=== PATIENT | male | born 1970 | race Caucasian/White ===

== ENCOUNTER → 2022-10-12 08:52 | Outpatient (BNVA) | payer MEDICARE, SELFPAY | PROVIDERS: Family Provider Family Medicine; PCP Family Medicine; Visit Provider Family Medicine | DX: Z76.89 Persons encountering health services in other specified circumstances (principal); R35.1 Nocturia; I10 Essential (primary) hypertension; N52.9 Male erectile dysfunction, unspecified; E78.2 Mixed hyperlipidemia; E11.9 Type 2 diabetes mellitus without complications | CPT/HCPCS: 80053; 80061; 82043; 83036; 84153; 84403; 85025 ==

== ENCOUNTER → 2023-07-03 15:57 | Outpatient (BNVA) | payer MEDICARE, OTHER, SELFPAY | PROVIDERS: Family Provider Family Medicine; PCP Family Medicine; Visit Provider Family Medicine | DX: E11.9 Type 2 diabetes mellitus without complications (principal); Z79.4 Long term (current) use of insulin; Z12.5 Encounter for screening for malignant neoplasm of prostate; M54.16 Radiculopathy, lumbar region; G89.29 Other chronic pain | CPT/HCPCS: 80053; 80061; 83036; 83721; 85025; G0103 ==

== ENCOUNTER → 2023-08-20 13:53 | Outpatient (BNVA) | payer MEDICARE, OTHER, SELFPAY | PROVIDERS: Family Provider Family Medicine; PCP Family Medicine; Visit Provider Nurse Practitioner Family | DX: S62.306A Unspecified fracture of fifth metacarpal bone, right hand, initial encounter for closed fracture (principal); X58.XXXA Exposure to other specified factors, initial encounter | CPT/HCPCS: 73130 ==

== ENCOUNTER 2025-06-16 08:36 | Emergency (ER) | payer MEDICARE, SELFPAY ==
[2025-06-16 09:07] VITALS: BP 138/80; PULSE 105; RESP 18; TEMP 36.7; O2SAT 100
--- OUTSIDE RECORDS SUMMARY | 2025-06-16 09:24 | XMS_ITS | Encounter Summary ---
Author Organization [facility] Address [address] [place] [address] Care Team Providers Care Justice Court Deputy Clerk Name Role Phone Lydia Brito MD Primary Care Provider Encounter Details Date Type Department Care Team (Latest Contact Info) Description 04/11/2002 Outpatient Historical [facility] Boni Manzo MD [address] [place] [phone] LOWER LEG INJURY NOS (Primary Dx); JOINT PAIN-ANKLE; DIABETES UNCOMPL ADULT-TYPE II (CMS/FORMERLY [facility]) Social History Tobacco Use Types Packs/Day Years Used Date Smoking Tobacco: Never Assessed Sex and Gender Information Value Date Recorded Sex Assigned at Not on file 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 Gender Identity Not on file Sexual Orientation Not on file documented as of this encounter Plan of Treatment Not on file documented as of this encounter Visit Diagnoses Diagnosis Injury, other and unspecified, knee, leg, ankle, and foot- Primary Pain in joint, ankle and foot Type II or unspecified type diabetes mellitus without mention of complication, not stated as uncontrolled documented in this encounter Care Teams Justice Court Deputy Clerk Relationship Specialty Start Date End Date Lydia Brito MD [address] [phone] PCP - General Family Practice 12/30/14 documented as of this encounter
--- OUTSIDE RECORDS SUMMARY | 2025-06-16 09:24 | XMS_ITS | Encounter Summary ---
Author Organization [facility] Address [address] [place] [address] Care Team Providers Care Reptile Farmer Name Role Phone Lydia Brito MD Primary Care Provider Encounter Details Date Type Department Care Team (Latest Contact Info) Description 07/27/1999 Outpatient Historical [facility] Carmine Gordon MD [address] [phone] Abdominal or pelvic swelling, mass, or lump, right upper quadrant (Primary Dx) Social History Tobacco Use Types Packs/Day Years Used Date Smoking Tobacco: Never Assessed Sex and Gender Information Value Date Recorded Sex Assigned at Not on file 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
--- OUTSIDE RECORDS SUMMARY | 2025-06-16 09:24 | XMS_ITS | Encounter Summary ---
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
--- OUTSIDE RECORDS SUMMARY | 2025-06-16 09:24 | XMS_ITS | Encounter Summary ---
Author Organization 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
--- OUTSIDE RECORDS SUMMARY | 2025-06-16 09:24 | XMS_ITS | Encounter Summary ---
Author Organization [facility] Address [address] [place] [address] Care Team Providers Care Business Integration Manager Name Role Phone Lydia Brito MD Primary Care Provider Encounter Details Date Type Department Care Team (Latest Contact Info) Description 02/22/1999 Outpatient Historical HIS [facility] Boni Manzo MD [address] [place] [address] Carpal tunnel syndrome (Primary Dx) Social History Tobacco Use Types Packs/Day Years Used Date Smoking Tobacco: Never Assessed Sex and Gender Information Value Date Recorded Sex Assigned at Not on file 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
--- OUTSIDE RECORDS SUMMARY | 2025-06-16 09:24 | XMS_ITS | Patient Health Record ---
Author Organization [facility] Address [address] [place] [address] Care Team Providers Care Miller Head Wet Process Name Role Phone John Dalton Unavailable [phone] Reason For Referral No Information Medications Medication SIG (Take, Route, Frequency, Duration) Notes Start Date End Date Status Metoprolol Tartrate 50 MG Tablet Take 1 tablet(s) by mouth bid Oral; Duration: 30 Metoprolol Tartrate 50mg Tablet Take 1 tablet(s) by mouth bid #60 (Sixty) tablet(s) 01/05/2014 Active Ramipril 5 MG Capsule Take 1 capsule(s) by mouth daily Oral; Duration: 30 Ramipril 5mg Capsules Take 1 capsule(s) by mouth daily #30 (Thirty) capsule(s) 02/02/2014 Active Pravastatin Sodium 40 MG Tablet Take 1 tablet(s) by mouth at bedtime Oral; Duration: 30 Pravastatin (Pravastatin) 40mg Tablet Take 1 tablet(s) by mouth at bedtime #30 (Thirty) tablet(s) 11/19/2013 Active Gabapentin 300 MG Capsule 1 cap(s) po at supper Oral; Duration: 30 Gabapentin (Gabapentin) 300mg Capsules 1 cap(s) po at supper #60 (Sixty) capsule(s) 11/19/2013 Active Aspirin 325 MG Tablet Delayed Release Take 1 tablet(s) by mouth qam Oral; Duration: 30 Aspirin (ASA) 325mg Tablets, Enteric Coated Take 1 tablet(s) by mouth qam 01/05/2014 Active Social History Social History Additional Details Category Social Info Options Details zzMigrated Social History Migrated Social History Advance Directive: Current and Verified Signed on 11/05/2013 Organ Donation: Patient Consents to Organ Donation 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 Highest Level of Education College level or above Problems Problem Type SNOMED Code ICD Code Onset Dates Problem Status W/U Status Risk Notes Problem Reduced libido (5866522) Decreased libido (799.81) 11/19/19 14 Problem resolved confirmed [id number]- Problem Low back pain (246203547) Low back pain (724.2) 09/28/20 14 Problem resolved confirmed [id number]- Problem Peripheral neuropathy (708897256) Peripheral neuropathy (356.9) 11/05/19 14 Problem resolved confirmed [id number]- Problem Open wound of foot (599443868) Open wound of foot (892.0) 11/05/19 14 Problem resolved confirmed [id number]- Problem Tachycardia (7428504) Tachycardia, NOS (785.0) 01/06/20 14 Problem resolved confirmed [id number]- Problem Chronic otitis media (69710297) Chronic otitis media (382.9) 01/06/20 14 Problem resolved confirmed [id number]- Problem Cervical radiculopathy (84112529) Cervical radiculopathy (723.4) 11/05/19 14 Problem resolved confirmed [id number]- Problem Constipation (95236379) Constipation (564.01) 01/06/20 14 Problem resolved confirmed [id number]- Problem Diabetes mellitus type 2 (disorder) (12294793) Type 2 diabetes (250.00) 11/05/19 14 Active confirmed [id number]- Plan Of Treatment No Information Medical (General) History Surgical History Surgery Date(Month/Year) Positive forTonsillectomy; a t age 8; uncomplicated; ; Positive forCataract Removal: right; 2008;,Fracture(s):fracture of ankle: dx'd in 2008; andInfusion in C6 & C7-2009;;
--- OUTSIDE RECORDS SUMMARY | 2025-06-16 09:24 | XMS_ITS | Encounter Summary ---
Author Organization [facility] Address [address] [place] [address] Care Team Providers Care Tabulating Supervisor Name Role Phone Lydia Brito MD Primary Care Provider Encounter Details Date Type Department Care Team (Latest Contact Info) Description 05/12/2002 Outpatient Historical HIS [facility] Boni Manzo MD [address] [place] [address] HYPERLIPIDEMIA NEC/NOS (Primary Dx); HYPERTENSION NOS Social History Tobacco Use Types Packs/Day Years Used Date Smoking Tobacco: Never Assessed Sex and Gender Information Value Date Recorded Sex Assigned at Not on file 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
--- OUTSIDE RECORDS SUMMARY | 2025-06-16 09:24 | XMS_ITS | Encounter Summary ---
Author Organization [facility] Address [address] [place] [address] Care Team Providers Care Sole Leather Cutting Machine Operator Name Role Phone Lydia Brito MD Primary Care Provider Encounter Details Date Type Department Care Team (Latest Contact Info) Description 12/18/2000 Outpatient Historical [facility] Boni Manzo MD [address] [place] [phone] Lumbago (Primary Dx); Type II or unspecified type diabetes mellitus without mention of complication, not stated as uncontrolled; Orchitis and epididymitis, unspecified Social History Tobacco Use Types Packs/Day Years Used Date Smoking Tobacco: Never Assessed Sex and Gender Information Value Date Recorded Sex Assigned at Not on file Legal Sex Male 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 CARE 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 SPECIALIST Gender Identity Not on file Sexual Orientation Not on file documented as of this encounter Plan of Treatment Not on file documented as of this encounter Visit Diagnoses Diagnosis Lumbago- Primary Type II or unspecified type diabetes mellitus without mention of complication, not stated as uncontrolled Orchitis and epididymitis, unspecified documented in this encounter Care Teams Sole Leather Cutting Machine Operator Relationship Specialty Start Date End Date Lydia Brito MD [address] [facility] [address] [place] [phone] PCP - General Family Practice 12/30/14 documented as of this encounter
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
--- OUTSIDE RECORDS SUMMARY | 2025-06-16 09:24 | XMS_ITS | Encounter Summary ---
Author Organization [facility] Address [address] [place] [address] Care Team Providers Care Plc Controls Engineer Name Role Phone Lydia Brito MD Primary Care Provider Encounter Details Date Type Department Care Team (Latest Contact Info) Description 07/21/1999 Outpatient Historical HIS [facility] Boni Manzo MD [address] [place] [phone] Hernia of other specified sites of abdominal cavity without mention of obstruction or gangrene (Primary Dx); Hydrocele, unspecified Social History Tobacco Use Types Packs/Day Years Used Date Smoking Tobacco: Never Assessed Sex and Gender Information Value Date Recorded Sex Assigned at Not on file Legal Sex Male 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
--- OUTSIDE RECORDS SUMMARY | 2025-06-16 09:24 | XMS_ITS | Encounter Summary ---
Author Organization [facility] Address [address] [place] [address] Care Team Providers Care Ice Cream Van Vendor Name Role Phone Lydia Brito MD Primary Care Provider Encounter Details Date Type Department Care Team (Latest Contact Info) Description 02/09/1999 Outpatient Historical HIS [facility] Harjeet Nagy NO ADDRESS ON FILE Acute sinusitis, unspecified (Primary Dx); Bronchopneumonia, organism unspecified Social History Tobacco Use Types Packs/Day Years Used Date Smoking Tobacco: Never Assessed Sex and Gender Information Value Date Recorded Sex Assigned at Not on file 

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
--- OUTSIDE RECORDS SUMMARY | 2025-06-16 09:24 | XMS_ITS | Encounter Summary ---
Author Organization [facility] Address [address] [place] [address] Care Team Providers Care Bad Cloth Checker Name Role Phone Lydia Brito MD Primary Care Provider Encounter Details Date Type Department Care Team (Latest Contact Info) Description 09/21/1999 Outpatient Historical [facility] Carmine Gordon MD [address] [phone] Abdominal or pelvic swelling, mass or lump, unspecified site (Primary Dx) Social History Tobacco Use Types Packs/Day Years Used Date Smoking Tobacco: Never Assessed Sex and Gender Information Value Date Recorded Sex Assigned at Not on file Legal Sex Male 5:34 AM [employer] Gender Identity Not on file Sexual Orientation Not on file documented as of this encounter Plan of Treatment Not on file documented as of this encounter Visit Diagnoses Diagnosis Abdominal or pelvic swelling, mass or lump, unspecified site- Primary documented in this encounter Care Teams Bad Cloth Checker Relationship Specialty Start Date End Date Lydia Brito MD [address] [phone] PCP - General Family Practice 12/30/14 documented as of this encounter
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
--- NOTE | 2025-06-16 10:17 | CT_ITS ---
WS: [id number] CT CERVICAL SPINE HISTORY: Trauma TECHNIQUE: Contiguous 2.0 mm axial imaging performed through the entire cervical spine. Sagittal and coronal reformats also performed. All CT scans at [facility] use at least one of these dose optimization techniques: automated exposure control; mA and/or kV adjustment per patient size (includes targeted exams where dose is matched to clinical indication); or iterative reconstruction. DLP: 2074.10 mGy.cm COMPARISON: None available. Prior anterior cervical fusion at C5-6 with interbody spacer. Postsurgical site appears intact. Normal cervical vertebral body alignment. Normal facet joints. Normal craniocervical junction. Lateral masses of C1 and C2 are aligned. The odontoid is intact. No acute cervical spine fracture. C2-C3: Small central disc protrusion. C3-C4: Osteophytic ridging and a small central disc protrusion. Mild central with moderate to severe foraminal stenosis. C4-C5: Facet joint arthritis with a central disc protrusion. Moderate to severe foraminal stenosis. C5-C6: Osteophytic ridging with mild foraminal stenosis. C6-C7: Disc bulging with a central disc protrusion. Mild central and foraminal stenosis. C7-T1: Mild foraminal stenosis. Soft tissues are normal. Lung apices are clear. CT/CT cervical spin wo con* [id number] IMPRESSION: 1. No acute cervical spine fracture. 2. Facet joints are normally aligned. 3. Prior anterior cervical fusion with interbody spacer at C5-6. 4. 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
--- NOTE | 2025-06-16 10:17 | CT_ITS ---
WS: [id number] CT FACIAL BONES HISTORY: Trauma TECHNIQUE: Images obtained from the supraorbital location through the mandible. Soft tissue and bone windows are reviewed. Coronal and sagittal reformats have also been submitted. DLP: 2074.[address] scans at [facility] use at least one of these dose optimization techniques: automated exposure control; mA and/or kV adjustment per patient size (includes targeted exams where dose is matched to clinical indication); or iterative reconstruction. COMPARISON: None available. No facial bone fractures. The mandible is intact. No dislocation at the TM joints. Nasal bones and zygomatic arches are normal. No air-fluid levels in the paranasal sinuses. There is no fluid or blood along the internal or external auditory canals. Upper cervical spine is negative. Normal craniocervical junction alignment. CT/CT facial bones wo con* [id number] IMPRESSION: No facial bone fracture.
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
--- NOTE | 2025-06-16 10:18 | CT_ITS ---
WS: [id number] CT HEAD NONCONTRAST HISTORY: Trauma TECHNIQUE: Contiguous axial imaging performed through the brain. Bone and soft tissue windows. Sagittal and coronal reformats reviewed. All CT scans at [facility] use at least one of these dose optimization techniques: automated exposure control; mA and/or kV adjustment per patient size (includes targeted exams where dose is matched to clinical indication); or iterative reconstruction. DLP: 2074.10 mGy.cm COMPARISON: 06/11/2009 No acute intracranial hemorrhage, midline shift or mass effect. No atrophy or prior infarcts or herniation. Benign basal ganglia calcifications. Ventricles: Normal size with no hydrocephalus. No inferior displacement of the cerebellar tonsils. Paranasal sinuses: As visualized are clear. Mastoid air cells: Well pneumatized. Calvarium and scalp: Skull is intact with no soft tissue edema or swelling. CT/CT head wo con* [id number] IMPRESSION: No acute intracranial hemorrhage or edema. No skull fracture.
[2025-06-16 10:44] VITALS: BP 148/93; O2SAT 96
[2025-06-16] MEDS: methylPREDNISolone sod succ 125 mg/2 mL INJ IVP (10:48)
[2025-06-16 12:04] VITALS: O2SAT 96
[2025-06-16 12:29] VITALS: BP 143/96; PULSE 97; RESP 16; O2SAT 94
== END 2025-06-16 12:30 | disposition home or self-care (01) ==
PROVIDERS: Emergency Provider Family Medicine; Family Provider Family Medicine; PCP Family Medicine
DX: M54.12 Radiculopathy, cervical region (principal); Z79.4 Long term (current) use of insulin; Z79.85 Long-term (current) use of injectable non-insulin antidiabetic drugs
CPT/HCPCS: 70450; 70486; 72125; 96374; 96375; 99285; J1885; J2919

== ENCOUNTER 2025-06-20 15:50 | Emergency (ER) | payer MEDICARE, SELFPAY ==
--- OUTSIDE RECORDS SUMMARY | 2025-06-20 15:55 | XMS_ITS | Encounter Summary ---
Author Organization [facility] Address [address] [place] [address] Care Team Providers Care Wireless Sales Associate Name Role Phone Lydia Brito MD Primary Care Provider Encounter Details Date Type Department Care Team (Late st Contact Info) Description 08/05/2015 Lab Requisition [facility] Services [place] [address] [place] [address] Mtnv, External Provider [address] [facility] [address] [place] [address] Needlestick injury accident Social History Tobacco Use Types Packs/Day Years Used Date Smoking Tobacco: Former Cigarettes 1 20 0 10/01/1986 - 10/01/2006 Smokeless Tobacco: Current Chew Alcohol Use Standard Drinks/Week Comments Yes 0 (1 standard drink = 0.6 oz pur e alcohol) very seldom Sex and Gender Information Value Date Recorded Sex Assigned at Not on file Legal Sex Male 5:34 AM PULVERIZER Gender Identity Not on file Sexual Orientation Not on file documented as of this encounter Plan of Treatment Not on file documented as of this encounter Procedures Procedure Name Priority Date/Time Associated Diagnosis Comments HEPATITIS B SURFACE AB, QUAL Routine 08/05/2015 4:28 PM PULVERIZER Needlestick injury accident [ICD-10-CM] NEEDLESTICK EXPOSURE PANEL Routine 08/05/2015 4:28 PM PULVERIZER Needlestick injury accident [ICD-10-CM] HEPATITIS B SURFACE ANTIGEN Routine 08/05/2015 4:28 PM PULVERIZER Needlestick injury accident [ICD-10-CM] HEPATITIS C ANTIBODY Routine 08/05/2015 4:28 PM PULVERIZER Needlestick injury accident [ICD-10-CM] documented in this encounter Results * HEPATITIS C ANTIBODY (08/05/2015 4:28 PM PULVERIZER) HEPATITIS C AB Non-React whitley Non-React whitley 08/06/2015 10:59 PM PULVERIZER [facility] Comment:As of 2013: Al l Reactive and Equivocal HCV Antibody results will have confirmation testing: HCV RNA Quantitation by PCR. Blood specimen (specimen) Venipuncture - Lab Collect / Unknown 08/05/2015 4:28 PM PULVERIZER 08/05/2015 4:29 PM PULVERIZER External Provider Mtnv CHEMISTRY ORDERABLES Cherise l Result Performing Organization Address [facility] de Phone Number [facility] CLIA# [id number] [address] CLIA# [id number] [address] [place] [address] * HEPATITIS B SURFACE ANTIGEN (08/05/2015 4:28 PM PULVERIZER) HEPATITIS B SURFACE AG Non-Reacti ve Non-React whitley 08/06/2015 10:59 PM PULVERIZER [facility] Blood specimen (specimen) Venipuncture - Lab Collect / Unknown 08/05/2015 4:28 PM PULVERIZER 08/05/2015 4:29 PM PULVERIZER External Provider Mtnv CHEMISTRY ORDERABLES Cherise l Result Performing Organization Address [facility] Co de Phone Number [facility] CLIA# [id number] [address] CLIA# [id number] [address] [place] [address] * NEEDLESTICK EXPOSURE PANEL (08/05/2015 4:28 PM PULVERIZER) [facility] RAPID HIV SCREEN NON-REACTI VE Non-Reacti ve 08/05/2015 5:03 PM PULVERIZER [facility] Blood Venipuncture - L ab Collect / Unknown 08/05/2015 4:28 PM PULVERIZER 08/05/2015 4:29 PM PULVERIZER Narrative [facility] LABORATORY [facility] - 08/05/2015 5:03 PM PULVERIZER A Non-Reactive result does not preclude the possibility of exposure to HIV or infection with HIV. An antibody response to recent exposure may take several months to reach detectable levels. External Provider [employer] CHEMISTRY ORDERABLES COM Final Result Performing Organization Address City/[facility]/ZIP Co de Phone Number [facility] CLIA # [id number] [address] [address] * HEPATITIS B SURFACE AB, QUAL (08/05/2015 4:28 PM PULVERIZER) [facility] HEPATITIS B SURFACE AB, QUAL Non-Reacti ve Non-React whitley 08/06/2015 10:57 PM PULVERIZER [facility] Blood specimen (specimen) Venipuncture - Lab Collect / Unknown 08/05/2015 4:28 PM PULVERIZER 08/05/2015 4:29 PM PULVERIZER External Provider Ctnv CHEMISTRY ORDERABLES Cherise l Result Performing Organization Address City/[facility]/ZIP Co de Phone Number [facility] CLIA# [id number] [address] [place] [address] [facility] CLIA# [id number] [address] [place] [address] documented in this encounter Visit Diagnoses Diagnosis Needlestick injury accident Open wound(s) (multiple) of unspecified site(s), without mention of complication documented in this encounter Care Teams Wireless Sales Associate Relationship Specialty Start Date End Date Lydia Brito MD [address] [phone] PCP - General Family Practice 12/30/14 documented as of this encounter
--- OUTSIDE RECORDS SUMMARY | 2025-06-20 15:56 | XMS_ITS | Encounter Summary ---
Author Organization [facility] Address [address] [place] [address] Care Team Providers Care Personal Lines Insurance Advisor Name Role Phone Lydia Brito MD Primary Care Provider Encounter Details Date Type Department Care Team (Latest Contact Info) Description 07/27/1999 Outpatient Historical HIS [facility] Carmine Gordon MD [address] [phone] Abdominal or pelvic swelling, mass, or lump, right upper quadrant (Primary Dx) Social History Tobacco Use Types Packs/Day Years Used Date Smoking Tobacco: Never Assessed Sex and Gender Information Value Date Recorded Sex Assigned at Not on file Legal Sex Male 5:34 AM BOX ICER Gender Identity Not on file Sexual Orientation Not on file documented as of this encounter Plan of Treatment Not on file documented as of this encounter Visit Diagnoses Diagnosis Abdominal or pelvic swelling, mass, or lump, right upper quadrant- Primary documented in this encounter Care Teams Personal Lines Insurance Advisor Relationship Specialty Start Date End Date Lydia Brito MD [address] [phone] PCP - General Family Practice 12/30/14 documented as of this encounter
--- OUTSIDE RECORDS SUMMARY | 2025-06-20 15:56 | XMS_ITS | Encounter Summary ---
Author Organization [facility] Address [address] [place] [address] Care Team Providers Care It Security Consultant Name Role Phone Lydia Brito MD Primary Care Provider Encounter Details Date Type Department Care Team (Latest Contact Info) Description 09/21/1999 Outpatient Historical HIS [facility] Carmine Gordon MD [address] [phone] Abdominal or pelvic swelling, mass or lump, unspecified site (Primary Dx) Social History Tobacco Use Types Packs/Day Years Used Date Smoking Tobacco: Never Assessed Sex and Gender Information Value Date Recorded Sex Assigned at Not on file Legal Sex Male 5:34 AM BENEFITS 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
--- OUTSIDE RECORDS SUMMARY | 2025-06-20 15:56 | XMS_ITS | Patient Health Record ---
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 Highest Level of Education College level or above Problems Problem Type SNOMED Code ICD Code Onset Dates Problem Status W/U Status Risk Notes Problem Reduced libido (7751799) Decreased libido (799.81) 11/19/19 14 Problem resolved confirmed [id number]- Problem Low back pain (909621957) Low back pain (724.2) 09/28/20 14 Problem resolved confirmed [id number]- Problem Peripheral neuropathy (925005351) Peripheral neuropathy (356.9) 11/05/19 14 Problem resolved confirmed [id number]- Problem Open wound of foot (898305878) Open wound of foot (892.0) 11/05/19 14 Problem resolved confirmed [id number]- Problem Tachycardia (6723787) Tachycardia, NOS (785.0) 01/06/20 14 Problem resolved confirmed [id number]- Problem Chronic otitis media (48502073) Chronic otitis media (382.9) 01/06/20 14 Problem resolved confirmed [id number]- Problem Cervical radiculopathy (00682329) Cervical radiculopathy (723.4) 11/05/19 14 Problem resolved confirmed [id number]- Problem Constipation (12113497) Constipation (564.01) 01/06/20 14 Problem resolved confirmed [id number]- Problem Diabetes mellitus type 2 (disorder) (58227226) Type 2 diabetes (250.00) 11/05/19 14 Active confirmed [id number]- Plan Of Treatment No Information Medical (General) History Surgical History Surgery Date(Month/Year) Positive forTonsillectomy; a t age 8; uncomplicated; ; Positive forCataract Removal: right; 2008;,Fracture(s):fracture of ankle: dx'd in 2008; andInfusion in C6 & C7-2009;;
--- OUTSIDE RECORDS SUMMARY | 2025-06-20 15:56 | XMS_ITS | Clinical Summary ---
Author Organization [employer] Address [address] [place]: Epic Prelude ADT ARINA HORVATH [address] Care Team Providers Care Admission Discharge Rn Name Role Phone Lydia Brito MD Primary [...] on file Legal Sex Male 3:08 AM SENIOR BIOSTATISTICIAN Gender Identity Not on file Sexual Orientation [...] Comments HEMOGLOBIN A1C Routine 08/03/2015 6:33 PM SENIOR BIOSTATISTICIAN MICROALBUMIN/CREATIN INE RATIO, RANDOM UR Routine 04/26/2015 12:06 PM CDT LDL CHOLESTEROL, DIRECT Routine 04/26/2015 12:06 PM CDT from Last 3 Months or Most Recently Relevant to Health Maintenance Results * (ABNORMAL) HEMOGLOBIN A1C (08/03/2015 6:33 PM SENIOR BIOSTATISTICIAN) HEMOGLOBIN A1C 11.9(H) 4.8 - 5.9 % 08/03/2015 9:45 PM SENIOR BIOSTATISTICIAN [facility] EST. AVG GLUCOSE, A1C 295 mg/dL 08/03/2015 9:45 PM SENIOR BIOSTATISTICIAN [facility] Blood Venipuncture / Unknown 08/03/2015 6:33 PM SENIOR BIOSTATISTICIAN 08/03/2015 9:29 PM SENIOR BIOSTATISTICIAN Narrative [facility] [place] - 08/03/2015 9:45 PM SENIOR BIOSTATISTICIAN If not available from last three months Kyle Sexton MD CHEMISTRY ORDERABLES F inal Result [facility] [place] CLIA # [id number] [address] [place] [address] [facility] CLIA # [id number] [address] [place] [address] * MICROALBUMIN/CREATININE RATIO, RANDOM UR (04/26/2015 12:06 PM CDT) MICROALBUMIN URINE 2.0 MG/DL 04/26/2015 9:49 PM CDT [facility]3] [facility] Creatinine, Urine 177 MG/DL 015 9:49 PM CDT [facility]3] [facility] MICROALBUMIN/CREA T RATIO, UR 11.3 MCG/MG CREAT. 04/26/2015 9:49 PM CDT [facility]3] [facility] Comment: NORMAL: <30 MCG/MG CREAT MICROALBUMINURIA: 30-300 MCG/MG CREAT CLINICAL ALBUMINURIA: >300 MCG/MG CREAT Blood 04/26/2015 12:0 6 PM CDT 04/26/2015 12:07 PM CDT Dilia Henderson JUNIOR PROJECT MANAGER URINE ORDERABLES Final Result Performing Organization Address City/[facility]/ZIP Co de Phone Number [facility]3] [facility] CLIA# [id number] [address] [place] [address] * LDL CHOLESTEROL, DIRECT (04/26/2015 12:06 PM CDT) LDL CHOLESTEROL, DIRECT 90 58 - 100 MG/DL 04/26/2015 9:52 PM CDT [facility]3] [facility] Comment: DIRECT LDL REFERENCE: < 100 Optimal 100 - 129 Near Optimal 130 - 159 Borderline High > 160 High Risk 04/26/2015 12:0 6 PM CDT 04/26/2015 12:07 PM CDT Dilia Henderson JUNIOR PROJECT MANAGER CHEMISTRY ORDERAB LES Final Result Performing Organization Address [facility] Co de Phone Number [facility]3] [facility] CLIA# [id number] [address] [place] [address] from Last 3 Months or Most Recently Relevant to Health Maintenance Care Teams Admission Discharge Rn Relationship Specialty Start Date End Date Lydia Brito MD [address] [phone] PCP - General Family Practice 12/30/14
--- OUTSIDE RECORDS SUMMARY | 2025-06-20 15:56 | XMS_ITS | Encounter Summary ---
Author Organization [facility] Address [address] [place] [address] Care Team Providers Care Director Of Sports Medicine Name Role Phone Lydia Brito MD Primary Care Provider Encounter Details Date Type Department Care Team (Latest Contact Info) Description 04/11/2002 Outpatient Historical [facility] Boni Manzo MD [address] [place] [phone] LOWER LEG INJURY NOS (Primary Dx); JOINT PAIN-ANKLE; DIABETES UNCOMPL ADULT-TYPE II (CMS/[facility]) Social History Tobacco Use Types Packs/Day Years Used Date Smoking Tobacco: Never Assessed Sex and Gender Information Value Date Recorded Sex Assigned at Not on file 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
--- OUTSIDE RECORDS SUMMARY | 2025-06-20 15:56 | XMS_ITS | Clinical Summary ---
Author Organization [facility] Address [address] [place] [address] Phone Care Team Providers Care Fur Dry Cleaner Hand Name Role Phone Lydia Brito MD Primary [...] on file Legal Sex Male 5:34 AM SIGN SHOP SUPERVISOR Gender Identity Not on file Sexual Orientation Not on file Last Filed Vital Signs Vital Sign Reading Time Taken Comments Blood Pressure 110/80 01/28/2016 1:42 PM CDT Pulse 80 01/28/2016 1:42 PM CDT Temperature 36.9 C (98.4 F) 01/28/2016 1:42 PM CDT Respiratory Rate 14 01/28/2016 1:42 PM CDT Oxygen Saturation 94% 10/21/2015 7:10 PM SIGN SHOP SUPERVISOR Inhaled Oxygen Concentration - - Weight 118.4 [...] HEMOGLOBIN A1C Add on 08/03/2015 6:33 PM SIGN SHOP SUPERVISOR MICROALBUMIN/CREATIN INE RATIO, RANDOM UR Routine 04/26/2015 12:06 PM CDT Type 2 diabetes, uncontrolled, with neuropathy LIPID PANEL Routine 04/26/2015 12:06 PM CDT Hyperlipidemia from Last 3 Months or Most Recently Relevant to Health Maintenance Results * (ABNORMAL) HEMOGLOBIN A1C (08/03/2015 6:33 PM SIGN SHOP SUPERVISOR) HEMOGLOBIN A1C 11.9(H) 4.8 - 5.9 % 08/03/2015 9:45 PM SIGN SHOP SUPERVISOR [facility] EST. AVG GLUCOSE, A1C 295 mg/dL 08/03/2015 9:45 PM SIGN SHOP SUPERVISOR [facility] Blood Venipuncture - L ab Collect / Unknown 08/03/2015 6:33 PM SIGN SHOP SUPERVISOR 08/03/2015 9:29 PM SIGN SHOP SUPERVISOR Kyle Sexton MD CHEMISTRY ORDERABLES F inal Result [facility] CLIA # [id number] [address] [place] [address] * MICROALBUMIN/CREATININE RATIO, RANDOM UR (04/26/2015 12:06 PM CDT) MICROALBUMIN URINE 2.0 MG/DL [facility] Creatinine, Urine 177 MG/DL [facility] MICROALBUMIN/CREA T RATIO, UR 11.3 MCG/MG CREAT. [facility] Comment: NORMAL: <30 MCG/MG CREAT MICROALBUMINURIA: 30-300 MCG/MG CREAT CLINICAL ALBUMINURIA: >300 MCG/MG CREAT Blood specimen (specimen) 04/26/2015 12:06 PM CDT 04/26/2015 12:07 PM CDT Dilia Blank Santiago WELLNESS MANAGER URINE ORDERABLES Final Result Performing Organization Address City/[facility]/ZIP Co de Phone Number [facility] ST[place]SONIA# [id number] [address] [place] [address] * (ABNORMAL) LIPID PANEL (04/26/2015 12:06 PM CDT) CHOLESTEROL 175 100 - 200 MG/DL [facility] [place] TRIGLYCERIDE 419(H) 0 - 150 MG/DL [facility] [place] HDL 28(L) 40 - 60 MG/DL [facility] [place] LDL CALCULATED TRIG >400, UNABLE TO CALCULATE LDL 58 - 100 MG/DL [facility] [place] TOTAL NON-HDL CHOL(LDL+VLDL) 147 MG/DL [facility] [place] Comment: NON HDL CHOLESTEROL mg/dL OPTIMAL <130 NEAR OPTIMAL 130-159 BORDERLINE HIGH 160-189 HIGH 190-219 VERY HIGH >=220 Blood specimen (specimen) 04/26/2015 12:06 PM CDT 04/26/2015 12:07 PM CDT Dilia Blank Santiago WELLNESS MANAGER CHEMISTRY ORDERAB LES Final Result Performing Organization Address City/[facility]/ZIP Co de Phone Number [facility] CLIA# [id number] [address] [place] [address] from Last 3 Months or Most Recently Relevant to Health Maintenance Advance Directives For more information, please contact: [phone] * Full Code (Latest Code Status on File) Date Activated Date Inactivated Comments 10/15/2015 7:26 PM 10/21/2015 11:04 PM * Full Code Date Activated Date Inactivated Comments 08/03/2015 9:27 PM 08/07/2015 4:13 PM Care Teams Fur Dry Cleaner Hand Relationship Specialty Start Date End Date Lydia Brito MD [address] [phone] PCP - General Family Practice 12/30/14
--- OUTSIDE RECORDS SUMMARY | 2025-06-20 15:56 | XMS_ITS | Encounter Summary ---
Author Organization [facility] Address [address] [place] [address] Care Team Providers Care Land Development Manager Name Role Phone Lydia Brito MD Primary Care Provider Encounter Details Date Type Department Care Team (Latest Contact Info) Description 02/09/1999 Outpatient Historical HIS [facility] Harjeet Nagy NO ADDRESS ON FILE Acute sinusitis, unspecified (Primary Dx); Bronchopneumonia, organism unspecified Social History Tobacco Use Types Packs/Day Years Used Date Smoking Tobacco: Never Assessed Sex and Gender Information Value Date Recorded Sex Assigned at Not on file 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
--- OUTSIDE RECORDS SUMMARY | 2025-06-20 15:56 | XMS_ITS | Encounter Summary ---
Author Organization [facility] Address [address] [place] [address] Care Team Providers Care Imagery Intelligence Name Role Phone Lydia Brito MD Primary Care Provider Encounter Details Date Type Department Care Team (Latest Contact Info) Description 12/18/2000 Outpatient Historical [facility] Boni Manzo MD [address] [place] [phone] Lumbago (Primary Dx); Type II or unspecified type diabetes mellitus without mention of complication, not stated as uncontrolled; Orchitis and epididymitis, unspecified Social History Tobacco Use Types Packs/Day Years Used Date Smoking Tobacco: Never Assessed Sex and Gender Information Value Date Recorded Sex Assigned at Not on file Legal Sex Male 5:34 AM BLADE CHANGER Gender Identity Not on file Sexual Orientation Not on file documented as of this encounter Plan of Treatment Not on file documented as of this encounter Visit Diagnoses Diagnosis Lumbago- Primary Type II or unspecified type diabetes mellitus without mention of complication, not stated as uncontrolled Orchitis and epididymitis, unspecified documented in this encounter Care Teams Imagery Intelligence Relationship Specialty Start Date End Date Lydia Brito MD [address] [facility] [address] [place] [phone] PCP - General Family Practice 12/30/14 documented as of this encounter
--- OUTSIDE RECORDS SUMMARY | 2025-06-20 15:56 | XMS_ITS | Encounter Summary ---
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
--- OUTSIDE RECORDS SUMMARY | 2025-06-20 15:56 | XMS_ITS | Encounter Summary ---
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
--- OUTSIDE RECORDS SUMMARY | 2025-06-20 15:56 | XMS_ITS | Encounter Summary ---
Author Organization [facility] Address [address] [place] [address] Care Team Providers Care Middleware Developer Name Role Phone Lydia Brito MD Primary Care Provider Encounter Details Date Type Department Care Team (Late st Contact Info) Description 03/29/2004 Outpatient Historical [facility] [address] [place] [phone] Social History Tobacco Use Types Packs/Day Years Used Date Smoking Tobacco: Never Assessed Sex and Gender Information Value Date Recorded Sex Assigned at Not on file Legal 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
--- OUTSIDE RECORDS SUMMARY | 2025-06-20 15:56 | XMS_ITS | Encounter Summary ---
Author Organization [facility] Address [address] [place] [address] Care Team Providers Care Heating And Ventilation Engineer Name Role Phone Lydia Brito MD Primary Care Provider Encounter Details Date Type Department Care Team (Latest Contact Info) Description 08/22/1999 Outpatient Historical [facility] Carmine Gordon MD [address] [phone] Lipoma of other skin and subcutaneous tissue (Primary Dx) Social History Tobacco Use Types Packs/Day Years Used Date Smoking Tobacco: Never Assessed Sex and Gender Information Value Date Recorded Sex Assigned at Not on file Legal Sex Male 5:34 AM HOUSEKEEPER 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
--- OUTSIDE RECORDS SUMMARY | 2025-06-20 15:56 | XMS_ITS | Encounter Summary ---
Author Organization [facility] Address [address] [place] [address] Care Team Providers Care Rubber Heel And Sole Press Tender Name Role Phone Lydia Brito MD Primary Care Provider Encounter Details Date Type Department Care Team (Latest Contact Info) Description 07/21/1999 Outpatient Historical [facility] Boni Manzo MD [address] [place] [phone] Hernia of other specified sites of abdominal cavity without mention of obstruction or gangrene (Primary Dx); Hydrocele, unspecified Social History Tobacco Use Types Packs/Day Years Used Date Smoking Tobacco: Never Assessed Sex and Gender Information Value Date Recorded Sex Assigned at Not on file Legal 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
[2025-06-20 16:06] VITALS: BP 138/87; PULSE 110; RESP 18; TEMP 36.6; O2SAT 97; BMI 26.7
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
[2025-06-20] MEDS: orphenadrine 30 mg/mL Inj 2 mL 60 MG IM (16:45)
[2025-06-20 16:49] VITALS: PULSE 90; O2SAT 97
[2025-06-20 17:19] VITALS: BP 98/66; PULSE 86; O2SAT 96
[2025-06-20 17:28] VITALS: BP 99/66; PULSE 82; O2SAT 97
== END 2025-06-20 17:29 | disposition home or self-care (01) ==
PROVIDERS: Emergency Provider Physician Assistant
DX: G44.209 Tension-type headache, unspecified, not intractable (principal); Z79.4 Long term (current) use of insulin; Z79.85 Long-term (current) use of injectable non-insulin antidiabetic drugs
CPT/HCPCS: 96372; 99284; J1100; J1885; J2360